=== PATIENT | female | born 1940 | race Caucasian/White ===

== ENCOUNTER 2017-06-25 09:49 | Observation (INO) | payer MEDICARE, OTHER ==
[2017-06-25] MEDS ORDERED: NITROGLYCERIN (SL) 0.4 MG TAB SL ×2 (11:00→15:00)
[2017-06-25 11:06] LABS: ADD MAN DIFF? NO; BASOPHILS % 0.5 % (0.0-2.0); EOSINOPHILS # 0.1 10^3/ul (0.0-0.5); EOSINOPHILS % 1.5 % (0.0-7.0); HEMATOCRIT 38.3 % (37.0-47.0); HEMOGLOBIN 12.3 g/dl (12.0-16.0); LYMPHOCYTES # 1.2 10^3/ul (0.8-2.9); LYMPHOCYTES % 20.2 % (15.0-51.0); MEAN CORPUSCULAR HGB CONC 32.1 g/dl (32.0-37.0); MEAN PLATELET VOLUME 11.2 fl (7.4-10.4); MONOCYTE # 0.3 10^3/ul (0.3-0.9); MONOCYTES % 5.3 % (0.0-11.0); NEUTROPHIL # 4.3 10^3/ul (1.6-7.5); PLATELET COUNT 245 10^3/UL (140-415); RED CELL DISTRIBUTION WIDTH 14.4 % (11.5-14.5)
[2017-06-25 11:18] LABS: CREATINE KINASE 34 IU/L (23-200)
[2017-06-25 11:19] LABS: ANION GAP 17 (8-16); BLOOD UREA NITROGEN 20 mg/dl (7-20); CALCIUM 9.9 mg/dl (8.4-10.2); CARBON DIOXIDE 24 mmol/L (21-31); CHLORIDE 107 mmol/L (97-110); CREATININE 1.27 mg/dl (0.44-1.00); GLUCOSE 98 mg/dl (70-220); POTASSIUM 5.4 mmol/L (3.5-5.1); SODIUM 143 mmol/L (135-144)
[2017-06-25] MEDS: ASPIRIN 81 MG TAB PO (11:28)
[2017-06-25] MEDS: NITROGLYCERIN 2% 1 GM OINT PKT TD (11:28)
[2017-06-25 11:31] LABS: TROPONIN-I < 0.012 ng/ml (0.00-0.12)
[2017-06-25 11:33] LABS: CK INDEX 0.6
[2017-06-25 11:46] LABS: CK-MB < 0.22 ng/ml (0.0-2.4); TROPONIN-I < 0.012 ng/ml (0.00-0.12)
[2017-06-25] MEDS ORDERED: ACETAMINOPHEN 325 MG TAB PO (13:00)
[2017-06-25] MEDS ORDERED: ONDANSETRON 4 MG INJ IV (13:00)
[2017-06-25] MEDS ORDERED: NACL 0.9% 3 ML SYG IV (15:00)
[2017-06-25] MEDS ORDERED: morphine 2 MG INJ IV (15:00)
[2017-06-25] MEDS ORDERED: DOCUSATE SODIUM 100 MG CAP PO (15:00)
[2017-06-25] MEDS ORDERED: ALPRAZOLAM 0.5 MG TAB PO (15:00)
[2017-06-25] MEDS ORDERED: ONDANSETRON 4 MG TAB PO (15:00)
[2017-06-25 17:22] LABS: POTASSIUM 4.6 mmol/L (3.5-5.1)
[2017-06-25] MEDS ORDERED: HEPARIN 5,000 UNIT/0.5 ML VIAL SC (21:00)
[2017-06-25] MEDS: APIXABAN 5 MG TABLET PO (21:00)
[2017-06-25] MEDS: METOPROLOL 50 MG TAB PO (21:00)
[2017-06-25] MEDS: ACETAMINOPHEN 325 MG TAB PO (21:58)
[2017-06-25] MEDS: RANOLAZINE (SR) 500 MG TAB PO (21:58)
[2017-06-25] MEDS: GABAPENTIN 300 MG CAP PO (21:58)
[2017-06-25 23:17] LABS: CREATINE KINASE 26 IU/L (23-200)
[2017-06-25 23:31] LABS: CK INDEX 0.8
[2017-06-25 23:34] LABS: CK-MB < 0.22 ng/ml (0.0-2.4); TROPONIN-I < 0.012 ng/ml (0.00-0.12)
[2017-06-26 05:04] LABS: ADD MAN DIFF? NO
[2017-06-26 05:08] LABS: WHITE BLOOD COUNT 4.2 10^3/ul (4.8-10.8)
[2017-06-26 05:08] LABS: BASOPHILS % 0.5 % (0.0-2.0); EOSINOPHILS # 0.1 10^3/ul (0.0-0.5); EOSINOPHILS % 2.4 % (0.0-7.0); HEMATOCRIT 32.4 % (37.0-47.0); HEMOGLOBIN 10.7 g/dl (12.0-16.0); LYMPHOCYTES # 1.3 10^3/ul (0.8-2.9); LYMPHOCYTES % 31.2 % (15.0-51.0); MEAN CORPUSCULAR HEMOGLOBIN 28.5 pg (29.0-33.0); MEAN CORPUSCULAR VOLUME 86.4 fl (82.0-101.0); MONOCYTE # 0.3 10^3/ul (0.3-0.9); MONOCYTES % 6.7 % (0.0-11.0); NEUTROPHIL # 2.5 10^3/ul (1.6-7.5); NEUTROPHILS % 58.7 % (39.0-77.0); PLATELET COUNT 217 10^3/UL (140-415); RED BLOOD COUNT 3.75 10^6/ul (4.20-5.40); RED CELL DISTRIBUTION WIDTH 14.6 % (11.5-14.5)
[2017-06-26 05:24] LABS: HEMOGLOBIN A1C 5.7 % (0-5.9)
[2017-06-26] MEDS: PANTOPRAZOLE (EC) 40 MG TAB PO (05:27)
[2017-06-26 05:37] LABS: ANION GAP 13 (8-16); BLOOD UREA NITROGEN 22 mg/dl (7-20); CALCIUM 9.4 mg/dl (8.4-10.2); CARBON DIOXIDE 26 mmol/L (21-31); CHLORIDE 108 mmol/L (97-110); CHOL/HDL RATIO 3.3 RATIO; CHOLESTEROL 136 mg/dl (100-200); CREATININE 1.54 mg/dl (0.44-1.00); GLUCOSE 86 mg/dl (70-220); HDL CHOLESTEROL 41 mg/dl (33-92); LDL CHOLESTEROL,CALCULATED 70 mg/dl; MAGNESIUM 1.6 mg/dl (1.7-2.5); PHOSPHORUS 3.9 mg/dl (2.5-4.9); POTASSIUM 4.1 mmol/L (3.5-5.1); SODIUM 143 mmol/L (135-144); TRIGLYCERIDES 127 mg/dl (0-149)
[2017-06-26] MEDS: RANOLAZINE (SR) 500 MG TAB PO ×2 (09:05→21:13)
[2017-06-26] MEDS: FENOFIBRATE 48 MG TAB PO (09:05)
[2017-06-26] MEDS: PYRIDOXINE 50 MG TAB PO (09:05)
[2017-06-26] MEDS: LEVOTHYROXINE 75 MCG TAB PO (09:05)
[2017-06-26] MEDS: APIXABAN 5 MG TABLET PO ×2 (09:05→21:14)
[2017-06-26] MEDS: ACETAMINOPHEN 325 MG TAB PO ×2 (09:06→21:17)
[2017-06-26] MEDS: METOPROLOL 50 MG TAB PO ×2 (09:06→21:14)
[2017-06-26] MEDS: MAGNESIUM SULFATE 2 GM/50 ML 50 ML IVPB (12:18)
[2017-06-26 14:30] LABS: FREE T4 (FREE THYROXINE) 1.63 ng/dl (0.78-2.44)
[2017-06-26] MEDS ORDERED: hydrALAzine 20 MG INJ IV (17:30)
[2017-06-26] MEDS: GABAPENTIN 300 MG CAP PO (21:14)
[2017-06-27] MEDS: LEVOTHYROXINE 75 MCG TAB PO (06:08)
[2017-06-27] MEDS: PANTOPRAZOLE (EC) 40 MG TAB PO (06:08)
[2017-06-27 08:45] LABS: ADD MAN DIFF? NO
[2017-06-27] MEDS: RANOLAZINE (SR) 500 MG TAB PO (08:49)
[2017-06-27] MEDS: PYRIDOXINE 50 MG TAB PO (08:49)
[2017-06-27] MEDS: APIXABAN 5 MG TABLET PO (08:49)
[2017-06-27] MEDS: METOPROLOL 50 MG TAB PO (08:55)
[2017-06-27] MEDS: AMLODIPINE 2.5 MG TAB PO (08:55)
[2017-06-27] MEDS: ACETAMINOPHEN 325 MG TAB PO (09:00)
[2017-06-27 09:03] LABS: BASOPHILS % 0.7 % (0.0-2.0); EOSINOPHILS # 0.1 10^3/ul (0.0-0.5); EOSINOPHILS % 1.7 % (0.0-7.0); HEMATOCRIT 38.6 % (37.0-47.0); HEMOGLOBIN 12.6 g/dl (12.0-16.0); LYMPHOCYTES # 1.4 10^3/ul (0.8-2.9); LYMPHOCYTES % 23.5 % (15.0-51.0); MEAN CORPUSCULAR HEMOGLOBIN 27.9 pg (29.0-33.0); MEAN CORPUSCULAR HGB CONC 32.6 g/dl (32.0-37.0); MEAN CORPUSCULAR VOLUME 85.4 fl (82.0-101.0); MEAN PLATELET VOLUME 10.9 fl (7.4-10.4); MONOCYTE # 0.3 10^3/ul (0.3-0.9); MONOCYTES % 5.7 % (0.0-11.0); NEUTROPHIL # 3.9 10^3/ul (1.6-7.5); NEUTROPHILS % 68.1 % (39.0-77.0); PLATELET COUNT 277 10^3/UL (140-415); RED BLOOD COUNT 4.52 10^6/ul (4.20-5.40); RED CELL DISTRIBUTION WIDTH 14.1 % (11.5-14.5)
[2017-06-27 09:03] LABS: WHITE BLOOD COUNT 5.7 10^3/ul (4.8-10.8)
[2017-06-27 09:19] LABS: CHOLESTEROL 164 mg/dl (100-200)
[2017-06-27 09:19] LABS: CHOL/HDL RATIO 2.9 RATIO; HDL CHOLESTEROL 55 mg/dl (33-92); LDL CHOLESTEROL,CALCULATED 78 mg/dl; TRIGLYCERIDES 157 mg/dl (0-149)
[2017-06-27 09:24] LABS: PHOSPHORUS 3.3 mg/dl (2.5-4.9)
[2017-06-27] MEDS: FENOFIBRATE 48 MG TAB PO (09:26)
[2017-06-27 09:46] LABS: ANION GAP 19 (8-16); BLOOD UREA NITROGEN 22 mg/dl (7-20); CARBON DIOXIDE 22 mmol/L (21-31); CHLORIDE 107 mmol/L (97-110); CREATININE 1.49 mg/dl (0.44-1.00); GLUCOSE 93 mg/dl (70-220); POTASSIUM 4.3 mmol/L (3.5-5.1); SODIUM 144 mmol/L (135-144)
[2017-06-27] MEDS: REGADENOSON 0.4 MG/5 ML SYG (12:15)
== END 2017-06-27 16:52 | disposition home or self-care (01) ==
LOC: MS4 06-26 05:47 → E/R 09:49 → MS3 12:52
PROVIDERS: Family Medicine
DX: R07.9 Chest pain, unspecified (principal); I12.9 Hypertensive chronic kidney disease with stage 1 through stage 4 chronic kidney disease, or unspecified chronic kidney disease; N18.9 Chronic kidney disease, unspecified; I49.5 Sick sinus syndrome; I48.0 Paroxysmal atrial fibrillation; Z79.01 Long term (current) use of anticoagulants; E78.5 Hyperlipidemia, unspecified; E03.9 Hypothyroidism, unspecified; K21.9 Gastro-esophageal reflux disease without esophagitis; Z95.0 Presence of cardiac pacemaker; D64.9 Anemia, unspecified
CPT/HCPCS: 36415; 71045; 78452; 80048; 80061; 82550; 82553; 83036; 83735; 84100; 84132; 84439; 84443; 84484; 85025; 93005; 93017; 93306; 99285-25; G0378

== ENCOUNTER 2017-07-28 09:27 | Emergency (ER) | payer MEDICARE, OTHER ==
[2017-07-28] MEDS: AL HYDROX/MG HYDROX/SIMETH 30 ML CUP PO (10:12)
[2017-07-28] MEDS: ONDANSETRON 4 MG INJ IV (10:12)
[2017-07-28] MEDS: FAMOTIDINE 20 MG INJ IV (10:12)
[2017-07-28 10:38] LABS: ADD MAN DIFF? NO
[2017-07-28 10:41] LABS: BASOPHILS % 0.4 % (0.0-2.0); EOSINOPHILS # 0.1 10^3/ul (0.0-0.5); EOSINOPHILS % 0.9 % (0.0-7.0); HEMATOCRIT 34.7 % (37.0-47.0); HEMOGLOBIN 11.3 g/dl (12.0-16.0); LYMPHOCYTES # 1.1 10^3/ul (0.8-2.9); LYMPHOCYTES % 20.3 % (15.0-51.0); MEAN CORPUSCULAR HEMOGLOBIN 28.3 pg (29.0-33.0); MEAN CORPUSCULAR HGB CONC 32.6 g/dl (32.0-37.0); MEAN CORPUSCULAR VOLUME 86.8 fl (82.0-101.0); MEAN PLATELET VOLUME 10.9 fl (7.4-10.4); MONOCYTE # 0.2 10^3/ul (0.3-0.9); MONOCYTES % 3.8 % (0.0-11.0); NEUTROPHIL # 3.9 10^3/ul (1.6-7.5); PLATELET COUNT 236 10^3/UL (140-415); RED CELL DISTRIBUTION WIDTH 14.6 % (11.5-14.5)
[2017-07-28 10:41] LABS: WHITE BLOOD COUNT 5.3 10^3/ul (4.8-10.8)
[2017-07-28 11:08] LABS: ALANINE AMINOTRANSFERASE 14 IU/L (13-69); ALBUMIN 4.4 g/dl (3.3-4.9); ALBUMIN/GLOBULIN RATIO 1.22; ALKALINE PHOSPHATASE 40 IU/L (42-121); ANION GAP 18 (8-16); ASPARTATE AMINO TRANSFERASE 17 IU/L (15-46); BILIRUBIN,INDIRECT 0.1 mg/dl (0-1.1); BILIRUBIN,TOTAL 0.1 mg/dl (0.2-1.3); BLOOD UREA NITROGEN 19 mg/dl (7-20); CALCIUM 9.9 mg/dl (8.4-10.2); CARBON DIOXIDE 25 mmol/L (21-31); CHLORIDE 107 mmol/L (97-110); CREATININE 1.46 mg/dl (0.44-1.00); GLUCOSE 159 mg/dl (70-220); LIPASE 166 U/L (23-300); POTASSIUM 4.1 mmol/L (3.5-5.1); SODIUM 146 mmol/L (135-144)
[2017-07-28 11:17] LABS: B-TYPE NATRIURETIC PEPTIDE 4770 PG/ML (0-450)
[2017-07-28 11:22] LABS: TROPONIN-I < 0.012 ng/ml (0.00-0.12)
[2017-07-28] MEDS: FUROSEMIDE 20 MG INJ IV (12:12)
[2017-07-28] MEDS: ACETAMINOPHEN 500 MG TAB PO (12:12)
== END 2017-07-28 14:35 | disposition home or self-care (01) ==
LOC: E/R 09:27
DX: I50.21 Acute systolic (congestive) heart failure (principal); I12.9 Hypertensive chronic kidney disease with stage 1 through stage 4 chronic kidney disease, or unspecified chronic kidney disease; N18.9 Chronic kidney disease, unspecified; I25.10 Atherosclerotic heart disease of native coronary artery without angina pectoris; I25.2 Old myocardial infarction; E03.9 Hypothyroidism, unspecified; Z95.0 Presence of cardiac pacemaker; Z79.01 Long term (current) use of anticoagulants; Z86.79 Personal history of other diseases of the circulatory system
CPT/HCPCS: 36415; 71045; 80053; 83690; 83880; 84484; 85025; 96374; 96375; 99285-25

== ENCOUNTER 2017-08-06 22:22 | Observation (INO) | payer MEDICARE, OTHER ==
[2017-08-06 23:41] LABS: ADD MAN DIFF? NO
[2017-08-06 23:43] LABS: BASOPHILS % 0.7 % (0.0-2.0); EOSINOPHILS # 0.1 10^3/ul (0.0-0.5); EOSINOPHILS % 1.2 % (0.0-7.0); HEMATOCRIT 35.8 % (37.0-47.0); HEMOGLOBIN 11.8 g/dl (12.0-16.0); LYMPHOCYTES # 1.8 10^3/ul (0.8-2.9); LYMPHOCYTES % 30.3 % (15.0-51.0); MEAN CORPUSCULAR HEMOGLOBIN 28.8 pg (29.0-33.0); MEAN CORPUSCULAR VOLUME 87.3 fl (82.0-101.0); MEAN PLATELET VOLUME 11.2 fl (7.4-10.4); MONOCYTE # 0.5 10^3/ul (0.3-0.9); MONOCYTES % 8.8 % (0.0-11.0); NEUTROPHIL # 3.5 10^3/ul (1.6-7.5); NEUTROPHILS % 58.5 % (39.0-77.0); PLATELET COUNT 249 10^3/UL (140-415); RED CELL DISTRIBUTION WIDTH 14.5 % (11.5-14.5)
[2017-08-07 00:01] LABS: INR 1.09; PROTIME 14.3 Sec (11.9-14.9); PT RATIO 1.1
[2017-08-07 00:03] LABS: ALANINE AMINOTRANSFERASE 15 IU/L (13-69); ALBUMIN 4.3 g/dl (3.3-4.9); ALBUMIN/GLOBULIN RATIO 1.22; ALKALINE PHOSPHATASE 51 IU/L (42-121); ANION GAP 15 (8-16); ASPARTATE AMINO TRANSFERASE 17 IU/L (15-46); BLOOD UREA NITROGEN 28 mg/dl (7-20); CALCIUM 10.2 mg/dl (8.4-10.2); CARBON DIOXIDE 29 mmol/L (21-31); CHLORIDE 105 mmol/L (97-110); CREATININE 1.64 mg/dl (0.44-1.00); GLUCOSE 106 mg/dl (70-220); LIPASE 298 U/L (23-300); POTASSIUM 3.8 mmol/L (3.5-5.1); SODIUM 145 mmol/L (135-144); TOTAL PROTEIN 7.8 g/dl (6.1-8.1)
[2017-08-07 00:15] LABS: B-TYPE NATRIURETIC PEPTIDE 4150 PG/ML (0-450); TROPONIN-I < 0.012 ng/ml (0.00-0.12)
[2017-08-07] MEDS: morphine 4 MG/ML VIAL IV (06:59)
[2017-08-07] MEDS: ONDANSETRON 4 MG INJ IV ×2 (06:59→16:48)
[2017-08-07 07:12] LABS: CREATINE KINASE 35 IU/L (23-200)
[2017-08-07 07:25] LABS: CK INDEX 0.6
[2017-08-07 07:27] LABS: CK-MB < 0.22 ng/ml (0.0-2.4); TROPONIN-I < 0.012 ng/ml (0.00-0.12)
[2017-08-07] MEDS ORDERED: ALPRAZOLAM 0.25 MG TAB PO (07:30)
[2017-08-07] MEDS ORDERED: ALBUTEROL/IPRATROPIUM (NEB) 3 ML AMP HHN (07:30)
[2017-08-07] MEDS ORDERED: NACL 0.9% 3 ML SYG IV (07:30)
[2017-08-07] MEDS ORDERED: NITROGLYCERIN (SL) 0.4 MG TAB SL (07:30)
[2017-08-07] MEDS: FENOFIBRATE 48 MG TAB PO (08:58)
[2017-08-07] MEDS: APIXABAN 5 MG TABLET PO ×2 (08:59→21:04)
[2017-08-07] MEDS: METOPROLOL (XL) 50 MG TAB PO (08:59)
[2017-08-07] MEDS: FAMOTIDINE 20 MG TAB PO ×2 (09:00→21:04)
[2017-08-07] MEDS ORDERED: NON-FORMULARY/PATIENT OWN MED (Omeprazole* 20 MG) PO (09:00)
[2017-08-07] MEDS ORDERED: SOD CHLORIDE 0.9% 500 ML IV (09:30)
[2017-08-07] MEDS: PYRIDOXINE 50 MG TAB PO (10:00)
[2017-08-07 11:20] LABS: ADD MAN DIFF? NO
[2017-08-07 11:25] LABS: BASOPHILS % 0.4 % (0.0-2.0); EOSINOPHILS # 0.1 10^3/ul (0.0-0.5); EOSINOPHILS % 1.3 % (0.0-7.0); HEMATOCRIT 35.8 % (37.0-47.0); HEMOGLOBIN 11.7 g/dl (12.0-16.0); LYMPHOCYTES # 1.3 10^3/ul (0.8-2.9); LYMPHOCYTES % 25.1 % (15.0-51.0); MEAN CORPUSCULAR HEMOGLOBIN 28.7 pg (29.0-33.0); MEAN CORPUSCULAR HGB CONC 32.7 g/dl (32.0-37.0); MEAN CORPUSCULAR VOLUME 87.7 fl (82.0-101.0); MEAN PLATELET VOLUME 10.7 fl (7.4-10.4); MONOCYTE # 0.3 10^3/ul (0.3-0.9); MONOCYTES % 6.2 % (0.0-11.0); NEUTROPHIL # 3.5 10^3/ul (1.6-7.5); NEUTROPHILS % 66.6 % (39.0-77.0); PLATELET COUNT 236 10^3/UL (140-415); RED BLOOD COUNT 4.08 10^6/ul (4.20-5.40); RED CELL DISTRIBUTION WIDTH 14.7 % (11.5-14.5)
[2017-08-07 11:25] LABS: WHITE BLOOD COUNT 5.3 10^3/ul (4.8-10.8)
[2017-08-07 11:46] LABS: CHOL/HDL RATIO 2.4 RATIO; HDL CHOLESTEROL 58 mg/dl (33-92); LDL CHOLESTEROL,CALCULATED 57 mg/dl; TRIGLYCERIDES 123 mg/dl (0-149)
[2017-08-07 11:46] LABS: CHOLESTEROL 140 mg/dl (100-200)
[2017-08-07 11:53] LABS: CREATINE KINASE 29 IU/L (23-200)
[2017-08-07 11:55] LABS: ALANINE AMINOTRANSFERASE 12 IU/L (13-69); ALBUMIN 4.4 g/dl (3.3-4.9); ALBUMIN/GLOBULIN RATIO 1.29; ALKALINE PHOSPHATASE 40 IU/L (42-121); ANION GAP 17 (8-16); ASPARTATE AMINO TRANSFERASE 19 IU/L (15-46); BILIRUBIN,INDIRECT 0.1 mg/dl (0-1.1); BILIRUBIN,TOTAL 0.1 mg/dl (0.2-1.3); BLOOD UREA NITROGEN 24 mg/dl (7-20); CALCIUM 9.9 mg/dl (8.4-10.2); CARBON DIOXIDE 30 mmol/L (21-31); CHLORIDE 104 mmol/L (97-110); GLUCOSE 129 mg/dl (70-220); POTASSIUM 3.8 mmol/L (3.5-5.1); SODIUM 147 mmol/L (135-144); TOTAL PROTEIN 7.8 g/dl (6.1-8.1)
[2017-08-07 12:00] LABS: CK INDEX 0.8
[2017-08-07 12:02] LABS: CK-MB < 0.22 ng/ml (0.0-2.4); TROPONIN-I < 0.012 ng/ml (0.00-0.12)
[2017-08-07 12:12] LABS: MAGNESIUM 1.6 mg/dl (1.7-2.5)
[2017-08-07 12:35] LABS: HEMOGLOBIN A1C 5.5 % (0-5.9)
[2017-08-07] MEDS: GABAPENTIN 100 MG CAP PO ×2 (13:00→21:04)
[2017-08-07] MEDS: morphine 2 MG INJ IV (16:48)
[2017-08-07] MEDS ORDERED: GABAPENTIN 300 MG CAP PO (21:00)
[2017-08-08 02:49] LABS: CREATININE,URINE RANDOM 120.62 mg/dl (20-320)
[2017-08-08 02:49] LABS: SODIUM,URINE RANDOM 119 mmol/L (30-90)
[2017-08-08 03:09] LABS: CREATININE,URINE RANDOM 120.68 mg/dl (20-320)
[2017-08-08 03:33] LABS: PROTEIN/CREAT RATIO 0.14 RATIO
[2017-08-08] MEDS: morphine 2 MG INJ IV (03:50)
[2017-08-08 04:04] LABS: OSMOLALITY,URINE 645 mOsm/kg (250-1200)
[2017-08-08] MEDS: LEVOTHYROXINE 75 MCG TAB PO (07:25)
[2017-08-08] MEDS: METOPROLOL (XL) 50 MG TAB PO (08:42)
[2017-08-08] MEDS: FAMOTIDINE 20 MG TAB PO (08:42)
[2017-08-08] MEDS: GABAPENTIN 100 MG CAP PO ×2 (08:42→13:11)
[2017-08-08] MEDS: APIXABAN 5 MG TABLET PO (08:42)
[2017-08-08] MEDS: PYRIDOXINE 50 MG TAB PO (08:42)
[2017-08-08] MEDS: FENOFIBRATE 48 MG TAB PO (08:46)
[2017-08-08] MEDS: ACETAMINOPHEN 325 MG TAB PO (08:56)
[2017-08-08 09:01] LABS: ADD MAN DIFF? NO
[2017-08-08 09:15] LABS: WHITE BLOOD COUNT 6.6 10^3/ul (4.8-10.8)
[2017-08-08 09:15] LABS: BASOPHILS % 0.3 % (0.0-2.0); EOSINOPHILS # 0.1 10^3/ul (0.0-0.5); EOSINOPHILS % 1.1 % (0.0-7.0); HEMATOCRIT 36.5 % (37.0-47.0); LYMPHOCYTES # 1.4 10^3/ul (0.8-2.9); LYMPHOCYTES % 20.6 % (15.0-51.0); MEAN CORPUSCULAR HEMOGLOBIN 28.8 pg (29.0-33.0); MEAN CORPUSCULAR HGB CONC 32.9 g/dl (32.0-37.0); MEAN CORPUSCULAR VOLUME 87.7 fl (82.0-101.0); MEAN PLATELET VOLUME 11.2 fl (7.4-10.4); MONOCYTE # 0.4 10^3/ul (0.3-0.9); MONOCYTES % 5.5 % (0.0-11.0); NEUTROPHIL # 4.7 10^3/ul (1.6-7.5); PLATELET COUNT 244 10^3/UL (140-415); RED BLOOD COUNT 4.16 10^6/ul (4.20-5.40); RED CELL DISTRIBUTION WIDTH 14.4 % (11.5-14.5)
[2017-08-08 09:29] LABS: ANION GAP 14 (8-16); BLOOD UREA NITROGEN 24 mg/dl (7-20); CARBON DIOXIDE 29 mmol/L (21-31); CHLORIDE 107 mmol/L (97-110); CREATININE 1.37 mg/dl (0.44-1.00); GLUCOSE 112 mg/dl (70-220); MAGNESIUM 1.7 mg/dl (1.7-2.5); PHOSPHORUS 3.3 mg/dl (2.5-4.9); POTASSIUM 4.4 mmol/L (3.5-5.1); SODIUM 146 mmol/L (135-144)
[2017-08-08 09:37] LABS: URIC ACID 6.2 mg/dl (3.1-7.9)
[2017-08-08 11:27] LABS: FREE T4 (FREE THYROXINE) 1.76 ng/dl (0.78-2.44)
== END 2017-08-08 13:35 | disposition home health service (06) ==
LOC: E/R 22:22 → MS4 08-07 01:22
DX: N17.9 Acute kidney failure, unspecified (principal); R07.2 Precordial pain; I48.0 Paroxysmal atrial fibrillation; E03.9 Hypothyroidism, unspecified; E78.5 Hyperlipidemia, unspecified; D64.9 Anemia, unspecified; G62.9 Polyneuropathy, unspecified; R20.0 Anesthesia of skin; I25.10 Atherosclerotic heart disease of native coronary artery without angina pectoris; R91.8 Other nonspecific abnormal finding of lung field; I12.9 Hypertensive chronic kidney disease with stage 1 through stage 4 chronic kidney disease, or unspecified chronic kidney disease; N18.9 Chronic kidney disease, unspecified; I25.2 Old myocardial infarction; F41.9 Anxiety disorder, unspecified; F32.9 Major depressive disorder, single episode, unspecified; Z95.0 Presence of cardiac pacemaker
CPT/HCPCS: 70450; 71045; 76775; 80048; 80053; 80061; 81003; 82550; 82553; 82570; 82652; 83036; 83690; 83735; 83880; 83935; 84100; 84155; 84300; 84439; 84443; 84484; 84560; 85025; 85610; 85730; 89190; 93005; G0378

== ENCOUNTER 2018-07-02 10:12 | Emergency (ER) | payer MEDICARE, OTHER ==
[2018-07-02 11:42] LABS: ADD MAN DIFF? NO
[2018-07-02 11:43] LABS: BASOPHILS % 0.4 % (0.0-2.0); EOSINOPHILS # 0.1 10^3/ul (0.0-0.5); EOSINOPHILS % 1.5 % (0.0-7.0); HEMATOCRIT 36.2 % (37.0-47.0); HEMOGLOBIN 11.4 g/dl (12.0-16.0); LYMPHOCYTES # 1.4 10^3/ul (0.8-2.9); LYMPHOCYTES % 20.1 % (15.0-51.0); MEAN CORPUSCULAR HEMOGLOBIN 27.2 pg (29.0-33.0); MEAN CORPUSCULAR HGB CONC 31.5 g/dl (32.0-37.0); MEAN CORPUSCULAR VOLUME 86.4 fl (82.0-101.0); MEAN PLATELET VOLUME 10.4 fl (7.4-10.4); MONOCYTE # 0.4 10^3/ul (0.3-0.9); MONOCYTES % 5.2 % (0.0-11.0); NEUTROPHIL # 4.8 10^3/ul (1.6-7.5); NEUTROPHILS % 72.2 % (39.0-77.0); PLATELET COUNT 314 10^3/UL (140-415); RED BLOOD COUNT 4.19 10^6/ul (4.20-5.40); RED CELL DISTRIBUTION WIDTH 13.6 % (11.5-14.5)
[2018-07-02 11:43] LABS: WHITE BLOOD COUNT 6.7 10^3/ul (4.8-10.8)
[2018-07-02 11:48] LABS: ADD UMIC YES; UR ASCORBIC ACID NEGATIVE (NEGATIVE); UR BILIRUBIN (Dip) NEGATIVE (NEGATIVE); UR BLOOD (Dip) NEGATIVE (NEGATIVE); UR CLARITY CLEAR (CLEAR); UR COLOR YELLOW (YELLOW); UR GLUCOSE (Dip) NEGATIVE (NEGATIVE); UR KETONES (Dip) NEGATIVE (NEGATIVE); UR LEUKOCYTE ESTERASE (Dip) TRACE Leu/ul (NEGATIVE); UR NITRITE (Dip) NEGATIVE (NEGATIVE); UR RBC 0 /HPF (0-5); UR SPECIFIC GRAVITY (Dip) 1.012 (1.003-1.030); UR SQUAMOUS EPITHELIAL CELL FEW /HPF (FEW); UR TOTAL PROTEIN (Dip) NEGATIVE (NEGATIVE); UR UROBILINOGEN (Dip) NEGATIVE (NEGATIVE); UR WBC 2 /HPF (0-5)
[2018-07-02 12:08] LABS: ALBUMIN 4.5 g/dl (3.3-4.9); ALBUMIN/GLOBULIN RATIO 1.12; ALKALINE PHOSPHATASE 58 IU/L (42-121); ANION GAP 12 (5-13); ASPARTATE AMINO TRANSFERASE 23 IU/L (15-46); BILIRUBIN,INDIRECT 0.2 mg/dl (0-1.1); BILIRUBIN,TOTAL 0.2 mg/dl (0.2-1.3); BLOOD UREA NITROGEN 19 mg/dl (7-20); CALCIUM 10.2 mg/dl (8.4-10.2); CARBON DIOXIDE 22 mmol/L (21-31); CHLORIDE 108 mmol/L (97-110); CREATININE 1.53 mg/dl (0.44-1.00); GLUCOSE 107 mg/dl (70-220); LIPASE 172 U/L (23-300); POTASSIUM 4.5 mmol/L (3.5-5.1); SODIUM 142 mmol/L (135-144); TOTAL PROTEIN 8.5 g/dl (6.1-8.1)
[2018-07-02 12:16] LABS: ALANINE AMINOTRANSFERASE < 6 IU/L (13-69)
[2018-07-02] MEDS: ACETAMINOPHEN 325 MG TAB PO (12:43)
== END 2018-07-02 13:11 | disposition home or self-care (01) ==
LOC: E/R 10:12
DX: R10.13 Epigastric pain (principal); I10 Essential (primary) hypertension; I25.10 Atherosclerotic heart disease of native coronary artery without angina pectoris
CPT/HCPCS: 36415; 76705; 80053; 81001; 83690; 85025; 99284-25

== ENCOUNTER 2018-09-26 20:30 | Emergency (ER) | payer MEDICARE, OTHER | END 2018-09-26 22:59 | disposition left against medical advice (07) | LOC: FTE 22:59 | DX: S60.862A Insect bite (nonvenomous) of left wrist, initial encounter (principal); I10 Essential (primary) hypertension; I25.10 Atherosclerotic heart disease of native coronary artery without angina pectoris; W57.XXXA Bitten or stung by nonvenomous insect and other nonvenomous arthropods, initial encounter; Y92.9 Unspecified place or not applicable; Z95.0 Presence of cardiac pacemaker | CPT/HCPCS: 99282 ==